=== PATIENT | female | born 2000 | race African-American/Black ===

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

== ENCOUNTER 2021-03-21 15:36 | Emergency (ER) | payer OTHER ==
[2021-03-21 16:21] LABS: #Basophils 0.1 thou/uL (0.0-0.2); #Eosinphils 0.1 thou/uL (0.0-0.7); #Monocytes 0.3 thou/uL (0.11-0.59); #Neutrophils 4.8 thou/uL (1.40-6.50); %Basophils 1.2 % (0.0-1.0); %Eosinophils 1.5 % (0.0-10.0); %Lymphocytes 27.1 % (28.0-48.0); %Monocytes 4.3 % (0.0-4.0); %Neutrophils 65.8 % (31.0-61.0); Hemoglobin 12.7 g/dL (12.0-16.0); Mean Corpuscular HGB CONC 34.4 g/dL (32.0-36.0); Mean Corpuscular Hemoglobin 26.8 pg (25.0-35.0); Mean Platelet Volume 9.6 fL (7.4-10.4); Platelet Count 182 thou/uL (130-400); RBC Distribution Width 13.7 % (11.5-14.5); Red Blood Cell (RBC) Count 4.75 mill/uL (4.00-5.20); White Blood Cell (WBC) Count 7.3 thou/uL (4.8-10.8)
[2021-03-21 16:38] LABS: Bacteria/HPF None Seen HPF (None Seen); Bilirubin Negative (Negative); Blood, Urine 3+ (Negative); Clarity Clear (Clear); Glucose, Urine (Dipstick) Normal (Negative); Ketone, Urine Negative (Negative); Leukocyte 250 Leu/uL (Negative); Nitrite Negative (Negative); Protein, Urine (Dipstick) 20 mg/dL (Neg-Trace); RBC/HPF Greater than 50 HPF (0-3); Specific Gravity, Urine 1.035 (1.002-1.036); Squamous Epithelial 0-3 HPF (0-3); Urobilinogen Normal mg/dL (Less than 2); WBC/HPF 21-50 HPF (0-3)
[2021-03-21 16:38] LABS: BHCG - Serum Negative (NEGATIVE); Pregs Control Background? CLEAR/WHITE (CLR/WHITE); Pregs Control Bar Appear? YES (CONTROL BAR)
[2021-03-21 16:43] LABS: ALT (SGPT) 7 U/L (8-55); AST (SGOT) 14 U/L (5-30); Albumin 4.5 g/dL (3.5-5.0); Alkaline Phosphatase 68 U/L (40-100); Anion Gap 13 mmol/L (10-20); BUN (Urea Nitrogen) 10 mg/dL (8.4-21.0); Bilirubin, Total 0.4 mg/dL (0.2-1.2); Calc. Creatinine Clearance 0 mL/min (70-130); Calcium 10.2 mg/dL (7.8-10.44); Carbon Dioxide 24 mmol/L (22-29); Chloride 106 mmol/L (98-107); Globulin 3.9 g/dL (2.4-3.5); Glucose 86 mg/dL (70-105); Potassium 3.7 mmol/L (3.5-5.1); Protein, Total 8.4 g/dL (6.0-8.3); Sodium 139 mmol/L (136-145)
[2021-03-21 16:48] LABS: Acetaminophen Less than 6.0 mcg/mL (10.0-30.0); Alcohol Less than 10 mg/dL (Less than 10); Salicylate Less than 8.0 mg/dL (15.0-30.0)
[2021-03-21 17:36] LABS: Amphetamine Not Detected (NotDetected); Barbiturates Screen Not Detected (NotDetected); Benzodiazepine Screen Not Detected (NotDetected); Cocaine Metabolite Screen Not Detected (NotDetected); Medtox Control Line Valid? VALID (VALID); Medtox Reader # READER 4; Methadone Not Detected (NotDetected); Methamphetamine Not Detected (NotDetected); Opiate Screen Not Detected (NotDetected); Oxycodone Screen Not Detected (NotDetected); Phencyclidine (PCP) Not Detected (NotDetected); THC/Cannabinoid Screen Not Detected (NotDetected); Tricyclic Screen Not Detected (NotDetected)
== END 2021-03-21 18:38 | disposition home or self-care (01) ==
LOC: ERS 15:36
DX: O99.345 Other mental disorders complicating the puerperium (principal); F53.0 Postpartum depression; Z79.899 Other long term (current) drug therapy
CPT/HCPCS: 36415; 80053; 80306; 80307; 81003; 81015; 84443; 84703; 85025; 93005

== ENCOUNTER 2022-03-11 17:05 | Emergency (ER) | payer OTHER ==
[2022-03-11 17:42] LABS: Bilirubin Negative (Negative); Blood, Urine Negative (Negative); Clarity Turbid (Clear); Glucose, Urine (Dipstick) Normal (Negative); Ketone, Urine Negative (Negative); Leukocyte 500 Leu/uL (Negative); Nitrite Negative (Negative); Protein, Urine (Dipstick) Negative (Neg-Trace); RBC/HPF None Seen HPF (0-3); Specific Gravity, Urine 1.027 (1.002-1.036); WBC/HPF Greater than 50 HPF (0-3); pH, Urine 5.5 (5.0-9.0)
[2022-03-11 17:46] LABS: Bacteria/HPF 1+ HPF (None Seen); Pregnancy Test - Urine (BHCG) POSITIVE (Negative); Pregu Control Background? CLEAR/WHITE (CLR/WHITE); Pregu Control Bar Appear? YES (CONTROL BAR); Specific Gravity 1.027 (1.002-1.036)
[2022-03-11 18:09] LABS: #Eosinphils 0.2 thou/uL (0.0-0.7); #Lymphocytes 3.3 thou/uL (1.20-3.40); #Monocytes 0.5 thou/uL (0.11-0.59); #Neutrophils 5.7 thou/uL (1.40-6.50); %Basophils 0.4 % (0.0-1.0); %Eosinophils 1.6 % (0.0-10.0); %Lymphocytes 33.9 % (28.0-48.0); %Monocytes 5.6 % (0.0-4.0); %Neutrophils 58.5 % (31.0-61.0); Mean Corpuscular Hemoglobin 28.3 pg (25.0-35.0); Mean Corpuscular Volume 80.9 fL (78.0-98.0); Mean Platelet Volume 8.8 fL (7.4-10.4); Platelet Count 181 thou/uL (130-400); RBC Distribution Width 14.2 % (11.5-14.5); Red Blood Cell (RBC) Count 4.23 mill/uL (4.00-5.20); White Blood Cell (WBC) Count 9.7 thou/uL (4.8-10.8)
[2022-03-11 18:42] LABS: ALT (SGPT) Less than 7 U/L (8-55); AST (SGOT) 14 U/L (5-34); Albumin 3.7 g/dL (3.5-5.0); Alkaline Phosphatase 56 U/L (40-100); Anion Gap 15 mmol/L (10-20); BUN (Urea Nitrogen) 10 mg/dL (7.0-18.7); Bilirubin, Total 0.3 mg/dL (0.2-1.2); Calc. Creatinine Clearance 0 mL/min (70-130); Carbon Dioxide 21 mmol/L (22-29); Chloride 106 mmol/L (98-107); Globulin 2.9 g/dL (2.4-3.5); Glucose 84 mg/dL (70-105); Potassium 3.7 mmol/L (3.5-5.1); Protein, Total 6.6 g/dL (6.0-8.3); Sodium 138 mmol/L (136-145)
== END 2022-03-11 21:11 | disposition home or self-care (01) ==
LOC: ERS 17:05
DX: O99.891 Other specified diseases and conditions complicating pregnancy (principal); R10.31 Right lower quadrant pain; Z3A.01 Less than 8 weeks gestation of pregnancy
CPT/HCPCS: 36415; 76856; 80053; 81025; 84702; 85025; 94760

== ENCOUNTER 2022-05-16 12:10 | Emergency (ER) | payer OTHER ==
[2022-05-16] MEDS ORDERED: Promethazine 25 MG TAB ONE (12:57)
[2022-05-16] MEDS ORDERED: Acetaminophen 500 MG TAB ONE (12:57)
[2022-05-16] MEDS ORDERED: Ibuprofen 200 MG TAB ONE (12:57)
[2022-05-16] MEDS ORDERED: cefTRIAXone\\ROCEPHIN 500 MG VIAL ONE (13:15)
[2022-05-16] MEDS ORDERED: Lidocaine 1% MPF 2 ML VIAL ONE (13:16)
== END 2022-05-16 13:54 | disposition home or self-care (01) ==
LOC: ERS 12:10
DX: A74.9 Chlamydial infection, unspecified (principal); R10.2 Pelvic and perineal pain
CPT/HCPCS: 96372; 99283; J0696; Q0169